=== PATIENT | male | born 1990 | race Caucasian/White ===

== ENCOUNTER 2018-03-01 13:13 | Emergency (ER) | payer MEDICAID ==
[~2018-03-01] VITALS: Ht 188 cm; Wt 81.7 kg
[2018-03-01] MEDS ORDERED: Norco 5-325 Ta1 EACH PO (14:34)
== END 2018-03-01 14:47 | disposition home or self-care (01) ==
LOC: ER 13:13
DX: S52.121A Displaced fracture of head of right radius, initial encounter for closed fracture (principal); W18.30XA Fall on same level, unspecified, initial encounter; F17.200 Nicotine dependence, unspecified, uncomplicated
CPT/HCPCS: 29105; 73080; 99283-25